=== PATIENT | female | born 1965 | race Two or more races ===

== ENCOUNTER 2020-01-06 13:59 | Emergency (ER) | payer MEDICAID, OTHER ==
[~2020-01-06] VITALS: Ht 157.5 cm; Wt 56.2 kg
[~2020-01-06 13:59] MED LIST: INSUPOW
[2020-01-06 14:19] VITALS: BP 116/63
== END 2020-01-06 16:25 | disposition home or self-care (01) ==
LOC: ER 13:59
DX: S00.83XA Contusion of other part of head, initial encounter (principal); S09.8XXA Other specified injuries of head, initial encounter; F17.210 Nicotine dependence, cigarettes, uncomplicated; E11.9 Type 2 diabetes mellitus without complications; F41.9 Anxiety disorder, unspecified; M25.531 Pain in right wrist; M25.562 Pain in left knee; Z90.49 Acquired absence of other specified parts of digestive tract; W01.0XXA Fall on same level from slipping, tripping and stumbling without subsequent striking against object, initial encounter; Y93.89 Activity, other specified; Y92.89 Other specified places as the place of occurrence of the external cause; Y99.8 Other external cause status
CPT/HCPCS: 70486

== ENCOUNTER 2021-06-21 20:41 | Emergency (ER) | payer SELFPAY ==
[~2021-06-21] VITALS: Ht 162.6 cm; Wt 54.4 kg
[2021-06-21] MEDS ORDERED: MORPHINE SULFATE 4 MG/ML SYR/VIAL IV ONE (21:45)
[2021-06-21] MEDS ORDERED: ONDANSETRON HCL 4 MG/2 ML VIAL IV ONE (21:45)
[2021-06-21 23:05] LABS: Basophils # (auto) 0.1 10 ^3/uL (0-0.2); Basophils % (auto) 1.3 % (0.0-2.0); Eosinophils # (auto) 0.1 10 ^3/uL (0-0.8); Eosinophils % (auto) 2.3 % (0.0-7.0); Hematocrit 36.9 % (36.0-46.0); Hemoglobin 12.9 g/dL (12.2-16.2); Lymphocytes # (auto) 1.7 10 ^3/uL (0.4-5.4); Lymphocytes % (auto) 29.1 % (10.0-50.0); Mean Corpuscular Hemoglobin 29.3 pg (28.0-32.0); Monocytes # (auto) 0.3 10 ^3/uL (0-1.3); Monocytes % (auto) 5.4 % (0.0-12.0); Neutrophils # (auto) 3.7 10 ^3/uL (1.6-8.6); Neutrophils % (auto) 61.9 % (37.0-80.0); Nucleated Red Blood Cells % 0.1 %; Red Cell Distribution Width 14.6 % (11.8-14.3); White Blood Cell 5.9 10^3/uL (4.4-10.8)
[2021-06-21 23:26] LABS: Albumin 1.4 g/dL (3.4-5.0); Calcium 7.9 mg/dL (8.5-10.1); Potassium 4.1 mmol/L (3.5-5.1)
[2021-06-21 23:28] LABS: BUN/Creatinine Ratio 20.3
[2021-06-21 23:39] LABS: Bilirubin, Total 0.2 mg/dL (0.2-1.0); Total Protein 4.8 g/dL (6.4-8.2)
[2021-06-22 00:38] VITALS: BP 180/91
[2021-06-22] MEDS ORDERED: cloNIDine HCL 0.1 MG TAB PO ONE (00:45)
[2021-06-22 01:02] LABS: Urine Specific Gravity 1.014 (1.001-1.035)
[2021-06-22 01:03] LABS: Urine Blood Trace /uL (Negative)
[2021-06-22 01:04] LABS: Urine Bacteria FEW /hpf (None Seen); Urine WBC 21 /hpf (0 - 5)
[2021-06-22 01:06] LABS: Urine WBC Clumps PRESENT /hpf (None Seen)
== END 2021-06-22 01:27 | disposition home or self-care (01) ==
LOC: ER 20:41
DX: R10.11 Right upper quadrant pain (principal); R07.81 Pleurodynia; R11.2 Nausea with vomiting, unspecified
CPT/HCPCS: 36415; 74176; 80053; 81001; 82150; 83690; 85025; 96374; 96375; 99284; J2270; J2405